=== PATIENT | female | born 1955 | race African-American/Black ===

== ENCOUNTER 2017-03-14 20:47 | Emergency (ER) | payer SELFPAY ==
[2017-03-14] MEDS ORDERED: ONDANSETRON 4 MG TAB.RAPDIS PO ONE (22:38)
--- NOTE | 2017-03-14 22:40 | ER Document Report ---
ED Medical Screen (RME) - General Chief Complaint: Vomiting Stated Complaint: DIZZINESS Time Seen by Provider: 03/14/17 22:34 Notes: 61-year-old female, chief complaint of initially feeling a little bit lightheaded, then she felt nauseated, then she vomited. She states she is having some abdominal cramping and she still feels nauseated. She denies chest pain, shortness of breath, current lightheadedness, fever, diarrhea. She is very healthy, takes no daily medications, denies ever smoking or drinking, denies any surgeries. TRAVEL OUTSIDE OF THE [place] IN LAST 30 DAYS: No - Related Data Allergies/Adverse Reactions: codeine Allergy (Verified 03/14/17 20:52) Physical Exam - Vital signs Vitals: Temp Pulse Resp BP Pulse Ox 98.0 F 68 16 143/67 H 97 03/14/17 20:53 03/14/17 20:53 03/14/17 20:53 03/14/17 20:53 03/14/17 20:53 - General General appearance: Appears well In distress: None - Abdominal Inspection: Normal Tenderness: Nontender. No: Tender Course - Vital Signs Vital signs: Temp Pulse Resp BP Pulse Ox 98.0 F 68 16 143/67 H 97 03/14/17 20:53 03/14/17 20:53 03/14/17 20:53 03/14/17 20:53 03/14/17 20:53
[2017-03-14 22:58] LABS: ABSOLUTE LYMPHOCYTES (AUTO) 1.3 10^3/uL (0.5-4.7); ABSOLUTE MONOCYTES (AUTO) 0.4 10^3/uL (0.1-1.4); ABSOLUTE NEUT (AUTO) 5.4 10^3/uL (1.7-8.2); BASOPHILS % (AUTO) 0.5 % (0-2); EOSINOPHILS % (AUTO) 0.7 % (0-6); HEMATOCRIT 39.9 % (36.0-47.0); HEMOGLOBIN 13.2 g/dL (12.0-15.5); LYMPHOCYTES % (AUTO) 17.8 % (13-45); MEAN CORPUSCULAR HEMOGLOBIN 29.5 pg (27.0-33.4); MEAN CORPUSCULAR HGB CONC 33.1 g/dL (32.0-36.0); MEAN CORPUSCULAR VOLUME 89 fl (80-97); MONOCYTES % (AUTO) 5.6 % (3-13); PLATELET COUNT 235 10^3/uL (150-450); RED BLOOD COUNT 4.47 10^6/uL (3.72-5.28); RED CELL DISTRIBUTION WIDTH 13.7 % (11.5-14.0); SEGMENTED NEUTROPHILS % (AUTO) 75.4 % (42-78); TOTAL CELLS COUNTED % (AUTO) 100 %; WHITE BLOOD COUNT 7.1 10^3/uL (4.0-10.5)
[2017-03-14 23:06] LABS: BILIRUBIN,URINE NEGATIVE (NEGATIVE); GLUCOSE, URINE NEGATIVE (NEGATIVE); KETONES,URINE NEGATIVE (NEGATIVE); LEUKOCYTE ESTERASE,URINE TRACE (NEGATIVE); NITRITE,URINE NEGATIVE (NEGATIVE); PROTEIN,URINE 30 mg/dL (NEGATIVE); URINE SPECIFIC GRAVITY 1.028; UROBILINOGEN,URINE NEGATIVE mg/dL (<2.0)
[2017-03-14 23:09] LABS: APPEARANCE,URINE CLEAR; COLOR,URINE LIGHT YELLOW
[2017-03-14 23:12] LABS: ALANINE AMINOTRANSFERASE 30 U/L (9-52); ALBUMIN 4.7 g/dL (3.5-5.0); ALKALINE PHOSPHATASE 73 U/L (38-126); ANION GAP 11 (5-19); ASPARTATE AMINO TRANSFERASE 26 U/L (14-36); BILIRUBIN,DIRECT 0.1 mg/dL (0.0-0.4); BILIRUBIN,TOTAL 0.4 mg/dL (0.2-1.3); BLOOD UREA NITROGEN 16 mg/dL (7-20); CALCIUM 10.7 mg/dL (8.4-10.2); CARBON DIOXIDE 28 mmol/L (22-30); CHLORIDE 101 mmol/L (98-107); GLUCOSE 125 mg/dL (75-110); POTASSIUM 4.4 mmol/L (3.6-5.0); SODIUM 140.1 mmol/L (137-145); TOTAL PROTEIN 7.4 g/dL (6.3-8.2)
--- NOTE | 2017-03-14 23:54 | ER Document Report ---
ED GI/ - General Mode of Arrival: Ambulatory Information source: Patient TRAVEL OUTSIDE OF THE [place] IN LAST 30 DAYS: No - HPI Patient complains to provider of: Abdominal pain, Vomiting. No: Diarrhea Onset: This evening Associated symptoms: Other - see notes above <CASSIA ALANIZ - Last Filed: 03/15/17 00:02> <JOSEJONATHAN FELICIA - Last Filed: 03/15/17 01:41> - General Chief Complaint: Vomiting Stated Complaint: DIZZINESS Time Seen by Provider: 03/14/17 22:34 Notes: 61 year old female presents to the ED complaining of lightheadedness, nausea, vomiting, and abdominal pain that started earlier this evening. At bedside, the patient reports that all her symptoms have subsided and that she feels better than when she arrived. Patient denies chest pain, shortness of breath, or diarrhea. (CASSIA ALANIZ) - Related Data Allergies/Adverse Reactions: codeine Allergy (Verified 03/14/17 20:52) Past Medical History - General Information source: Patient - Social History Smoking Status: Never Smoker Chew tobacco use (# tins/day): No Frequency of alcohol use: None Family History: Reviewed & Not Pertinent Patient has suicidal ideation: No Patient has homicidal ideation: No Renal/ Medical History: Denies: Hx Peritoneal Dialysis Surgical Hx: Negative <CASSIA ALANIZ - Last Filed: 03/15/17 00:02> Review of Systems - Review of Systems Constitutional: No symptoms reported EENT: No symptoms reported Cardiovascular: See HPI, Lightheaded. denies: Chest pain Respiratory: No symptoms reported. denies: Short of breath Gastrointestinal: See HPI, Abdominal pain, Nausea, Vomiting. denies: Diarrhea Genitourinary: No symptoms reported Female Genitourinary: No symptoms reported Musculoskeletal: No symptoms reported Skin: No symptoms reported Hematologic/Lymphatic: No symptoms reported Neurological/Psychological: No symptoms reported -: Yes All other systems reviewed and negative <CASSIA ALANIZ - Last Filed: 03/15/17 00:02> Physical Exam - Vital signs Interpretation: Normal - General General appearance: Appears well, Alert - HEENT Head: Normocephalic, Atraumatic Eyes: Normal Pupils: PERRL - Respiratory Respiratory status: No respiratory distress Chest status: Nontender Breath sounds: Normal Chest palpation: Normal - Cardiovascular Rhythm: Regular Heart sounds: Normal auscultation Murmur: No - Abdominal Inspection: Normal Distension: No distension Bowel sounds: Normal Tenderness: Nontender Organomegaly: No organomegaly - Back Back: Normal, Nontender - Extremities General upper extremity: Normal inspection, Nontender, Normal color, Normal ROM , Normal temperature General lower extremity: Normal inspection, Nontender, Normal color, Normal ROM , Normal temperature, Normal weight bearing. No: Ilana's sign - Neurological Neuro grossly intact: Yes Cognition: Normal Orientation: AAOx4 [place] Coma Scale Eye Opening: Spontaneous Bart Coma Scale Verbal: Oriented Bart Coma Scale Motor: Obeys Commands [place] Coma Scale Total: 15 Speech: Normal Motor strength normal: LUE, RUE, LLE, RLE Sensory: Normal - Psychological Associated symptoms: Normal affect, Normal mood - Skin Skin Temperature: Warm Skin Moisture: Dry Skin Color: Normal <JONATHAN GARCIA - Last Filed: 03/15/17 01:41> - Vital signs Vitals: Temp Pulse Resp BP Pulse Ox 98.0 F 68 16 143/67 H 97 03/14/17 20:53 03/14/17 20:53 03/14/17 20:53 03/14/17 20:53 03/14/17 20:53 Course - Laboratory Result Diagrams: 03/14/17 22:45 03/14/17 22:45 <CASSIA ALANIZ - Last Filed: 03/15/17 00:02> - Laboratory Result Diagrams: 03/14/17 22:45 03/14/17 22:45 <JONATHAN GARCIA - Last Filed: 03/15/17 01:41> - Re-evaluation Re-evalutation: 03/14 Patient is a 61-year-old female who had intestinal upset, nausea and vomiting prior to arrival. Patient states that she threw up in triage. Denies any abdominal pain currently. Patient felt lightheaded when she is nauseated initially. Patient was given Zofran and is feeling much better. She is no longer nauseated. No abdominal pain. No diarrhea. Blood work is within normal limits. Discussed options. Patient states that she is feeling better and would like to go home. Denies chest pain or trouble breathing. Tech came in to perform EKG and patient stated that she did not need that. She will be discharged home with Zofran and is to return if she has any worsening or concerning symptoms. (JONATHAN GARCIA) - Vital Signs Vital signs: Temp Pulse Resp BP Pulse Ox 97.6 F 58 L 18 129/71 H 97 03/15/17 00:21 03/15/17 00:21 03/15/17 00:21 03/15/17 00:21 03/15/17 00:21 - Laboratory Laboratory results interpreted by me: 03/14/17 03/14/17 22:40 22:45 Glucose 125 H Calcium 10.7 H Urine Protein 30 H Ur Leukocyte Esterase TRACE H Discharge <CASSIA ALANIZ - Last Filed: 03/15/17 00:02> <JONATHAN GARCIA - Last Filed: 03/15/17 01:41> - Discharge Clinical Impression: Nausea & vomiting Qualifiers: Vomiting type: unspecified Vomiting Intractability: non-intractable Qualified Code(s): R11.2 - Nausea with vomiting, unspecified Condition: Stable Disposition: HOME, SELF-CARE Instructions: Vomiting ([facility]) Additional Instructions: Your blood work appears normal. Please return if you have any concerning or worsening symptoms. Forms: Return to Work Scribe Attestation: 03/15/17 01:41 I personally performed the services described in the documentation, reviewed and edited the documentation which was dictated to the scribe in my presence, and it accurately records my words and actions. (JONATHAN GARCIA) Scribe Documentation - Scribe Written by Song:: Song Shultz, 03/15/2017 [id number] acting as scribe for :: Jose <CASSIA ALANIZ - Last Filed: 03/15/17 00:02>
[2017-03-14] MEDS ORDERED: ONDANSETRON ODT 4 MG TAB (6 TAB/ER DISP) PO PRN (23:55)
[2017-03-15 00:25] VITALS: BP 129/71
== END 2017-03-15 00:24 | disposition home or self-care (01) ==
LOC: ER 20:47
DX: R11.2 Nausea with vomiting, unspecified (principal); R10.9 Unspecified abdominal pain; R42 Dizziness and giddiness; Z88.6 Allergy status to analgesic agent
CPT/HCPCS: 99284; 36415; 85025; 80053; 81001; S0119